=== PATIENT | female | born 1950 | race Caucasian/White ===

== ENCOUNTER 2022-01-09 18:56 | Inpatient (IN) | payer OTHER ==
[2022-01-09] MEDS ORDERED: NA CHLORIDE 0.9% 500 ML ONE (22:10)
[2022-01-09] MEDS ORDERED: ONDANSETRON 4 MG/2 ML VIAL ONE (22:10)
[2022-01-09] MEDS ORDERED: NA CHLORIDE 0.9% 100 ML ONE (22:10)
[2022-01-09] MEDS ORDERED: PIPERACIL/TAZO 3.375 GM VIAL IV ONE (22:10)
--- NOTE | 2022-01-09 22:19 | ER ---
Nurse's Notes [facility] Name: Wanda Galarza Age: 71 yrs Sex: Female : 1950 Arrival Date: 01/09/2022 Time: 19:09 Bed 18 Private MD: Diagnosis: Colitis Presentation: 01/09 20:37 Chief complaint: Patient states: I started having stomach pain on Sunday night and I kd3 had a fever of 100.7. I took Advil and started to feel better. it was a dull muscular ache. I called my Dr this morning and they told me to go to the [place] ER. [facility] sent me to [place] to be admitted for and appendicitis. but the DR at [place] told me that they think it isn't an appendicitis after looking at the reports and scans from [facility]. I signed out of [place] AMA and called my original doctor who told me to get myself to an ER now because if my appendix ruptures it can kill me. Coronavirus screen: Vaccine status: Patient reports receiving the 2nd dose of the covid vaccine. Ebola Screen: No symptoms or risks identified at this time. Initial Sepsis Screen: Does the patient meet any 2 criteria? No. Patient's initial sepsis screen is negative. Does the patient have a suspected source of infection? No. Patient's initial sepsis screen is negative. Risk Assessment: Do you want to hurt yourself or someone else? Patient reports no desire to harm self or others. Onset of symptoms was January 09, 2022. 20:37 Method Of Arrival: Ambulatory kd3 20:37 Acuity: CLAUDIA 3 kd3 Triage Assessment: 20:44 General: Appears uncomfortable, Behavior is calm, cooperative. Pain: Complains of pain kd3 in right lower quadrant. GI: Abdomen is non-distended. Historical: - Allergies: 20:44 No Known Allergies; kd3 - Home Meds: 20:44 levothyroxine 88 mcg cap [Active]; losartan 50 mg oral tab every other day [Active]; kd3 - PMHx: 01/10 12:46 Hypertensive disorder; Hypothyroidism; tw2 - Immunization history:: Adult Immunizations up to date. - Social history:: Smoking status: Patient denies any tobacco usage or history of. Screenin:45 Abuse screen: Denies threats or abuse. Denies injuries from another. Nutritional as6 screening: No deficits noted. Tuberculosis screening: No symptoms or risk factors identified. Fall Risk None identified. Assessment: 01/09 22:30 General: Appears in no apparent distress. Behavior is calm, cooperative. Pain: as6 Complains of pain in abdomen and right lower quadrant. Neuro: Level of Consciousness is awake, alert, Reports headache. Respiratory: Respiratory effort is even, unlabored. GI: Reports lower abdominal pain. Vital Signs: 20:37 BP 164 / 90; Pulse 112; Resp 16; Temp 99.0; Pulse Ox 100% ; Weight 79.38 kg; Height 5 kd3 ft. 2 in. (157.48 cm); Pain 8/10; 20:37 Body Mass Index 32.01 (79.38 kg, 157.48 cm) kd3 ED Course: 19:09 Patient arrived in ED. ja2 20:44 Triage completed. kd3 20:44 Arm band placed on left wrist. kd3 20:47 Boy Lundy PA is PHCP. cp 20:47 Boy Sandhu MD is Attending Physician. cp 20:54 Magdaleno Landon, CHRISTIAN is Primary Nurse. as6 22:17 Stephanie Valdes PA is Hospitalizing Provider. cp 22:30 Inserted saline lock: 22 gauge in right antecubital area, using aseptic technique. as6 Blood collected. 23:03 Malachi Bar MD is Hospitalizing Provider. 01/10 05:30 COVID-19 SARS RT PCR (Document "Date of Onset" if Symptomatic) Sent. [facility] 05:45 Bed in low position. Call light in reach. Side rails up X2. as6 05:45 No provider procedures requiring assistance completed. Patient admitted, IV remains in as6 place. Administered Medications: 01/09 23:13 Not Given (Patient Refused): Zofran (Ondansetron) 4 mg IVP once; over 2 minutes as6 01/10 00:15 Drug: Zosyn (piperacillin-tazobactam) 3.375 grams Route: IVPB; Infused Over: 60 mins; aa9 Site: left antecubital; 02:00 Follow up: Response: No adverse reaction; IV Status: Completed infusion aa9 02:00 Drug: NS 0.9% 500 ml Route: IV; Rate: 500 ml/hr; Site: left antecubital; aa9 05:46 Follow up: Response: No adverse reaction; IV Status: Completed infusion; IV Intake: as6 500ml Medication: 05:45 VIS not applicable for this client. as6 Intake: 05:46 IV: 500ml; Total: 500ml. as6 Outcome: 01/09 22:18 Decision to Hospitalize by Provider. pacheco 01/10 05:46 Admitted to ER Hold. Please see [facility] for further documentation. as6 Condition: stable Instructed on the need for admit. 12:55 Patient left the ED. tw2 Signatures: Boy Lundy PA PA cp Wise, Tara, RN RN tw2 Odette Hathaway Ashby, RN RN as6 Светлана Cunningham RN RN kd3 Yolis Thorpe, RN RN sm5 Amairani Toledo, RN RN aa9
--- NOTE | 2022-01-09 22:19 | EDPHYS ---
Physician Documentation [facility] Name: Wanda Galarza Age: 71 yrs Sex: Female : 1950 Arrival Date: 01/09/2022 Time: 19:09 Bed 18 Private MD: ED Physician Boy Sandhu HPI: 01/09 21:30 This 71 yrs old Female presents to ER via Ambulatory with complaints of Abdominal Pain, cp Fever. 21:30 The patient presents with abdominal pain in the lower abdomen. Onset: The cp symptoms/episode began/occurred 3 day(s) ago. 21:30 The symptoms do not radiate. Associated signs and symptoms: Pertinent positives: fever, cp Pertinent negatives: blood in stools, constipation, diarrhea, dysuria, vomiting. The symptoms are described as constant. Severity of pain: in the emergency department the pain is unchanged. Patient reports she was seen at [place] ED earlier today and diagnosed with appendicitis. Patient reports she was transferred to [facility] for possible appendectomy, but when she arrived to the ED she was informed that she would be admitted for IV antibiotics due to concern for colitis and not acute appendicitis. Patient reports she checked herself out of the hospital because she did not want to be admitted for several days. Patient now presents to [facility] with c/o continued lower abdomen pain. Historical: - Allergies: 20:44 No Known Allergies; kd3 - Home Meds: 20:44 levothyroxine 88 mcg cap [Active]; losartan 50 mg oral tab every other day [Active]; kd3 - PMHx: 01/10 12:46 Hypertensive disorder; Hypothyroidism; tw2 - Immunization history:: Adult Immunizations up to date. - Social history:: Smoking status: Patient denies any tobacco usage or history of. ROS: 01/09 21:35 Constitutional: Negative for body aches, chills, fever, poor PO intake. cp 21:35 Eyes: Negative for injury, pain, redness, and discharge. cp 21:35 ENT: Negative for drainage from ear(s), ear pain, sore throat, difficulty swallowing, difficulty handling secretions. 21:35 Cardiovascular: Negative for chest pain, edema, palpitations. 21:35 Respiratory: Negative for cough, shortness of breath, wheezing. 21:35 Abdomen/GI: Positive for abdominal pain, of the right lower quadrant and left lower quadrant, Negative for vomiting, diarrhea, constipation, black/tarry stool, rectal bleeding. 21:35 : Negative for urinary symptoms. 21:35 Neuro: Negative for altered mental status, dizziness, headache, weakness. 21:35 All other systems are negative. Exam: 21:40 Constitutional: The patient appears in no acute distress, alert, awake, non-toxic, well cp developed, well nourished. 21:40 Head/Face: Normocephalic, atraumatic. cp 21:40 Eyes: Periorbital structures: appear normal, Conjunctiva: normal, no exudate, no injection, Sclera: no appreciated abnormality, Lids and lashes: appear normal, bilaterally. 21:40 ENT: External ear(s): are unremarkable, Nose: is normal, Mouth: Lips: moist, Oral mucosa: moist, Posterior pharynx: Airway: no evidence of obstruction, patent. 21:40 Chest/axilla: Inspection: normal. 21:40 Cardiovascular: Rate: normal, Rhythm: regular, Edema: is not appreciated, JVD: is not appreciated. 21:40 Respiratory: the patient does not display signs of respiratory distress, Respirations: normal, no use of accessory muscles, no retractions, labored breathing, is not present, Breath sounds: are clear throughout, no decreased breath sounds, no stridor, no wheezing. 21:40 Abdomen/GI: Inspection: abdomen appears normal, Bowel sounds: active, all quadrants, Palpation: soft, in all quadrants, moderate abdominal tenderness, in the right lower quadrant and left lower quadrant, rebound tenderness, is not appreciated, involuntary guarding, is not appreciated. 21:40 Back: CVA tenderness, is absent. 21:40 Skin: cellulitis, is not appreciated, no rash present. 21:40 Neuro: Orientation: to person, place \\T\\ time. Mentation: is normal, Motor: moves all fours, strength is normal, Sensation: is normal. Vital Signs: 20:37 BP 164 / 90; Pulse 112; Resp 16; Temp 99.0; Pulse Ox 100% ; Weight 79.38 kg; Height 5 kd3 ft. 2 in. (157.48 cm); Pain 8/10; 20:37 Body Mass Index 32.01 (79.38 kg, 157.48 cm) kd3 MDM: 20:55 Patient medically screened. [facility] 22:00 Differential diagnosis: appendicitis, bowel obstruction, diverticulitis, non-specific cp abd pain, Pyelonephritis, Ureterolithiasis, urinary tract infection, colitis. 22:06 Physician consultation: Jose Torres MD was called at 21:45, was contacted at 21:45, cp regarding consult, patient's condition, and will see patient in inpatient room, tomorrow, would like admission per Dr. Stephanie Valdes PA would like medications started, Zosyn, wants CT abdomen/pelvis done in morning. 01/10 00:10 Data reviewed: vital signs, nurses notes, diagnostic data from outside facility, cp radiologic studies, CT scan, lab test result(s). 00:10 Counseling: I had a detailed discussion with the patient and/or guardian regarding: the cp historical points, exam findings, and any diagnostic results supporting the discharge/admit diagnosis, lab results, radiology results, the need for further work-up and treatment in the hospital. 01/09 21:48 Order name: CBC with Diff; Complete Time: 00:05 01/09 21:48 Order name: CMP; Complete Time: 00:05 01/09 21:48 Order name: Lipase; Complete Time: 00:05 01/09 21:48 Order name: Urine Microscopic Only 01/09 21:48 Order name: Lactate; Complete Time: 00:05 01/09 21:48 Order name: Procalcitonin 01/09 21:48 Order name: Blood Culture Adult (2) 01/10 02:19 Order name: Urine Dipstick-Ancillary [facility] 01/10 02:34 Order name: COVID-19 SARS RT PCR (Document "Date of Onset" if Symptomatic) [facility] 01/10 06:27 Order name: SARS-COV-2 RT PCR [facility] 01/10 12:49 Order name: CT EDME 01/09 21:48 Order name: IV Saline Lock; Complete Time: 23:13 01/09 21:48 Order name: Labs collected and sent; Complete Time: 23:13 01/09 21:48 Order name: Urine Dipstick-Ancillary (obtain specimen); Complete Time: 05:46 cp Administered Medications: 01/09 23:13 Not Given (Patient Refused): Zofran (Ondansetron) 4 mg IVP once; over 2 minutes as6 07/12 00:15 Drug: Zosyn (piperacillin-tazobactam) 3.375 grams Route: IVPB; Infused Over: 60 mins; aa9 Site: left antecubital; 02:00 Follow up: Response: No adverse reaction; IV Status: Completed infusion aa9 02:00 Drug: NS 0.9% 500 ml Route: IV; Rate: 500 ml/hr; Site: left antecubital; aa9 05:46 Follow up: Response: No adverse reaction; IV Status: Completed infusion; IV Intake: as6 500ml Disposition Summary: 01/09/22 22:18 Hospitalization Ordered Hospitalization Status: Inpatient Admission cp Condition: Stable cp Problem: new cp Symptoms: are unchanged cp Bed/Room Type: Standard cp Provider: Malachi Bar(01/09/22 23:03) cp Location: Telemetry/MedSurg (Inpatient)(01/10/22 11:24) ja1 Room Assignment: [facility](01/10/22 11:24) ja Diagnosis - Colitis cp Forms: - Medication Reconciliation Form cp - SBAR form cp Addendum: 01/15/2022 15:13 Co-signature as Attending Physician, Boy Sandhu MD I agree with the assessment and c [place] plan of care. Signatures: Dispatcher [employer] EDBoy Chicas MD MD cha Page, Corey, PA Yasmine Mendez cp, RN Cee Wang RN RN tw2 Morgan Schaefer RN RN ja1 Светлана Cunningham RN RN kd3 Stephanie Valdes PA PA sb3 Avalos, Aylin, RN RN aa9 Magdaleno Landon RN as6 Corrections: (The following items were deleted from the chart) 01/09 23:03 22:18 Stephanie Valdes cp cp 23:32 22:18 Telemetry/MedSurg (Inpatient) cp cg 23:32 22:18 cp cg 01/10 11:24 01/09 23:32 [facility] ER HOLD cg ja1 01/10 11:24 01/09 23:32 ERHOLD- cg ja1
[2022-01-09 23:33] LABS: Absolute Lymphocytes (CBC) 1.4 K/uL (0.7-4.9); Hematocrit 40.6 % (36.0-45.0); Lymphocytes % 13.8 % (15.3-44.8); MCV 87.7 fL (80-100); MPV 9.8 fL (7.6-11.3); RBC Red Blood Cell Count 4.63 M/uL (3.86-4.86)
[2022-01-09 23:44] LABS: Albumin 3.5 g/dL (3.4-5.0); Bilirubin Total 0.8 mg/dL (0.2-1.0); Potassium 3.4 mmol/L (3.5-5.1); Protein, Total 7.6 g/dL (6.4-8.2)
--- NOTE | 2022-01-10 00:25 | P.HP ---
Certification for Inpatient Patient admitted to: Inpatient With expected LOS: <2 Midnights Patient will require the following post-hospital care: None Practitioner: I am a practitioner with admitting privileges, knowledge of patient current condition, hospital course, and medical plan of care. Services: Services provided to patient in accordance with Admission requirements found in Title 42 Section 412.3 of the Code of Federal Regulations Patient History Date of Service: 01/10/22 Reason for admission: Colitis History of Present Illness: Patient is a 71-year-old female with past medical history will hypothyroidism and hypertension who presented to the ED with complaints of abdominal pain. Patient was seen today at the [place] [facility] and diagnosed with acute appendicitis and colitis and transferred to [facility] for higher level of care. CT abd/pelv with contrast reads "RLQ inflammation with appendix dilated to 1.3 cm. This may simply reflect an appendicitis, but cecal wall thickening is somewhat out of proportion. Consider colitis with secondary appendiceal obstruction and inflammation." At [facility], she was told she did not need an appendectomy and was going to only be treated with IV antibiotics and decided to leave AMA. She returns to the ED with continued pain. Labs significant for UTI. General surgery was consulted and wishes for patient to be admitted, n.p.o., started on Zosyn, and will be seen in the morning. Allergies No Known Allergies Allergy (Verified 04/17/16 11:15) Home medications list reviewed: Yes Home Medications: Aspirin [Aspirin EC 81 MG] 81 mg PO DAILY 04/12/16 Levothyroxine [Synthroid*] 100 mcg PO [id number] 04/12/16 Losartan/Hydrochlorothiazide [Losartan-Hctz 50-12.5 mg Tab] 0.5 tab PO DAILY 04/12/16 - Past Medical/Surgical History Diabetic: No -: Hypothyroidism -: Hypertension -: Hysterectomy Psychosocial/ Personal History: Patient lives at home with family. - Family History Family History: Reviewed- Non-Contributory - Social History Smoking Status: Never smoker Alcohol use: No CD- Drugs: No Caffeine use: Yes Place of Residence: Home Review of Systems General: Fever Gastrointestinal: Abdominal Pain Physical Examination - Physical Exam General: Alert, In no apparent distress HEENT: Atraumatic, PERRLA, EOMI, Sclerae nonicteric Neck: Supple, 2+ carotid pulse no bruit, No LAD, Without JVD or thyroid abnormality Respiratory: Clear to auscultation bilaterally, Normal air movement Cardiovascular: Regular rate/rhythm, Normal S1 S2 Gastrointestinal: Normal bowel sounds, Non-distended, Tenderness Musculoskeletal: No tenderness Integumentary: No rashes Neurological: Normal speech, Normal strength at 5/5 x4 extr, Normal tone, Normal affect - Studies Laboratory Data (last 24 hrs) 01/09/22 23:07: Sodium 141, Potassium 3.4 L, BUN 10, Creatinine 0.76, Glucose 145 H, Total Bilirubin 0.8, AST 16, ALT 30, Alkaline Phosphatase 62, Lipase 29 L 01/09/22 23:07: WBC 10.4, Hgb 13.9, Hct 40.6, Plt Count 228 Assessment and Plan - Problems (Diagnosis) (1) Acute colitis Current Visit: Yes Status: Resolved (2) Acute appendicitis Current Visit: Yes Status: Acute Qualifiers: Acute appendicitis type: unspecified acute appendicitis type Qualified Code(s): K35.80 - Unspecified acute appendicitis (3) Hypertension Current Visit: Yes Status: Chronic Qualifiers: Hypertension type: primary hypertension Qualified Code(s): I10 - Essential (primary) hypertension (4) Hypothyroidism Current Visit: Yes Status: Chronic Qualifiers: Hypothyroidism type: unspecified Qualified Code(s): E03.9 - Hypothyroidism, unspecified (5) UTI (urinary tract infection) Current Visit: Yes Status: Acute Qualifiers: Urinary tract infection type: acute cystitis Hematuria presence: with hematuria Qualified Code(s): N30.01 - Acute cystitis with hematuria - Plan -General surgery consulted -NPO. Zosyn and IV fluids -Monitor and replete electrolytes per protocol -Reconcile and continue home medications -Lovenox for VTE ppx -Full code Discharge Plan: Home Plan to discharge in: 48 Hours - Advance Directives Does patient have a Living Will: No Does patient have a Durable POA for Healthcare: No - Code Status/Comfort Care Code Status Assessed: Yes (Full) Critical Care: No Time Spent Managing Pts Care (In Minutes): 50
[2022-01-10 02:19] LABS: Urine Blood 3+ (Negative); Urine Glucose Negative (Negative); Urine Protein 2+ (Negative); Urine Specific Gravity 1.025 (1.005-1.030); Urine pH 5.5 (5.0-7.0)
[2022-01-10] MEDS ORDERED: ONDANSETRON 4 MG/2 ML VIAL IV PRN (02:35)
[2022-01-10] MEDS ORDERED: MORPHINE 2 MG/ML SYR IV PRN (02:35)
[2022-01-10 02:52] LABS: Urine Bacteria 20-50 /HPF (<20); Urine RBC <5 /HPF (NONE SEEN)
[2022-01-10 04:02] VITALS: BMI 32.0
[2022-01-10] MEDS ORDERED: Ringers Lactate 1,000 ML IV ONE (05:03)
[2022-01-10] MEDS ORDERED: NA CHLORIDE 0.9% 100 ML ONE (05:12)
[2022-01-10] MEDS ORDERED: PIPERACIL/TAZO 3.375 GM VIAL IV ONE (05:12)
[2022-01-10] MEDS: Ringers Lactate 1,000 ML IV SCH ×3 (05:25→21:00)
[2022-01-10] MEDS: PIPER TAZO 3.375 GM in NA CHLORIDE 0.9% 100 ML IV SCH ×3 (05:26→21:00)
[2022-01-10] MEDS ORDERED: ENOXAPARIN 40 MG/0.4 ML SQ ONE (08:15)
[2022-01-10] MEDS: ENOXAPARIN 40 MG/0.4 ML SQ SCH (08:40)
--- NOTE | 2022-01-10 12:49 | RAD REPORT ---
EXAM DESCRIPTION: CT - CT CHEST,ABD,PELVIS W/O - 01/10/2022 12:33 pm CLINICAL HISTORY: Chest and abdomen pain. colitis vs appendicitis f/u COMPARISON: No comparisons TECHNIQUE: Limited noncontrast examination was performed. All CT scans are performed using dose optimization technique as appropriate and may include automated exposure control or mA/KV adjustment according to patient size. FINDINGS: The lungs are clear.No pleural or pericardial effusion.No intrathoracic adenopathy. The liver, spleen, pancreas, adrenal glands and kidneys are within normal limits. No bowel obstruction, free air, free fluid or abscess. The appendix is thickened to 15 mm. There is s ignificant thickening of the cecum as well with the wall measuring asymmetrically thickened up to 22 mm. No worrisome osseous finding. IMPRESSION: The appendix is thickened and does not fill with contrast. There is mild periappendiceal inflammation and small lymph nodes in the adjacent fat. In addition, the cecum is irregularly thicke juanjose measure up to 22 mm. Possibilities would include appendicitis with secondary edema involving the cecum. Another possibilit y would be cecal mass/malignancy with secondary thickening of the appendix.
[2022-01-10 14:01] VITALS: O2SAT 100
--- NOTE | 2022-01-10 17:28 | CON ---
Date of Consultation: 01/10/2022 Reason For Service: Colitis, appendicitis. History Of Present Illness: This is the case of a 71-year-old patient, who comes to us with 2-3 days history of abdominal pain. Last night did not get better, she want to [facility] ER. She kwame gnosed with colitis and appendicitis, but they noticed that the colon is a little bit more thickened than that they expected. She has no history of inflammatory bowel disease, so they believe this is c olitis, probably a malignancy and obviously because the appendix is next to it may be inflamed like t he colon she was sent to [place] ED for evaluation there and when they saw her, they agreed with that diagnosis, they were going to admit her for IV antibiotics and eventually do a colonoscopy to rule out malignancy. At that moment, she has WBC count elevated. At midnight, she decided to sig n out AMA and then she comes and when she was seen here, she was having less pain and the plan was to admit her to the hospital, IV antibiotics since she does not have any peritonitis, then r epeated a CT scan once again in this institution and we will take it from there. She never has any c olonoscopy done before. She has planned to have colonoscopy in the next few weeks. When I saw her t his morning, she states that the pain in the right lower quadrant has gone and the WBC count came kenyatta k negative. The CAT scan is still pending. Past Medical History: Reviewed. Medications: Reviewed. Allergies: NONE. Social History: She does not smoke. She does not drink alcohol. Family History: Noncontributory. Review of Systems: Yesterday, she had some nausea and abdominal pain. Today, no nausea and abdominal pain resolved. Th ere is no diarrhea. There is no melena. She does not recall any recent weight loss. Ten points oth erwise unremarkable. See H and P. Physical Examination: General: The patient is awake, alert. HEENT: Pupils are equal and reactive. Anicteric. Neck: Supple. Chest: Clear. Abdomen: Soft and depressible. No guarding or rebound. No peritoneal signs. No psoas signs. No R ovsing signs. No Robbins signs. Rectal: Deferred. Breasts: Deferred. Pelvic: Deferred. Extremities: Good capillary refill. Laboratory Data: Blood work reviewed with WBC count of 10. CAT scan of the abdomen and pelvis once again still pending. Plan: If the CT scan reviewed and once again shows an appendicitis and colitis with white count norm al and the pain has gone, we might have to make a decision on which is the proper timing to the surge ry. If she has colitis from a malignancy and that is why and the CAT scan might show, then it will b e an advantage to give the antibiotics, cool this area down and then do a formal colonoscopy and if w e find cancer, do a surgery which may include right hemicolectomy with bowel prep and better conditio ns. If clinically she deteriorates, then we might have to do sooner and that may help us to take a l ook at the appendix. Also, she may end with right hemicolectomy, although the result of this cancer surgery may be not as good as she wants to or may even require colostomy which basically she is tryin g to avoid. Right now, she is asymptomatic and the white count is normal. Once we have that imaging , then we will make a decision in the proper way to go and then she can go consequence for each action. If she manages not to have surgery done during this admission and she controls the swe lling with antibiotics, she must have a colonoscopy as soon as possible whenever the gastroenterologi st believe it is safe to rule out any malignancy in that area. She understands. I will follow the patient with you and give more recommendations as the case develops. VINEET/NOE Voice ID: [id number] Report ID: [id number]
--- NOTE | 2022-01-10 19:01 | P.PN ---
Subjective Date of Service: 01/10/22 Chief Complaint: Colitis Patient denies any complaint. She denies any abdominal pain. She denies any diarrhea. No nausea or vomiting. Physical Examination - Vital Signs Temperature: 97.4 F Blood Pressure: 155/78 Pulse: 83 Respirations: 18 Pulse Ox (%): 99 - Physical Exam General: Alert, In no apparent distress, Oriented x3 HEENT: Mucous membr. moist/pink Neck: JVD not distended Respiratory: Clear to auscultation bilaterally, Normal air movement Cardiovascular: No edema, Regular rate/rhythm, Normal S1 S2 Gastrointestinal: Normal bowel sounds, Soft and benign, Non-distended, No tenderness Musculoskeletal: No swelling Integumentary: No rashes Neurological: Normal strength at 5/5 x4 extr - Studies Laboratory Data (last 24 hrs) 01/09/22 23:07: Sodium 141, Potassium 3.4 L, BUN 10, Creatinine 0.76, Glucose 145 H, Total Bilirubin 0.8, AST 16, ALT 30, Alkaline Phosphatase 62, Lipase 29 L 01/09/22 23:07: WBC 10.4, Hgb 13.9, Hct 40.6, Plt Count 228 Assessment And Plan - Current Problems (Diagnosis) (1) Colitis Current Visit: Yes Status: Acute (2) Hypertension Current Visit: Yes Status: Chronic Qualifiers: Hypertension type: primary hypertension Qualified Code(s): I10 - Essential (primary) hypertension (3) Hypothyroidism Current Visit: Yes Status: Chronic Qualifiers: Hypothyroidism type: unspecified Qualified Code(s): E03.9 - Hypothyroidism, unspecified (4) UTI (urinary tract infection) Current Visit: Yes Status: Acute Qualifiers: Urinary tract infection type: acute cystitis Hematuria presence: with hematuria Qualified Code(s): N30.01 - Acute cystitis with hematuria - Plan Repeat CT scan report possible cecal malignancy with inflammation in the appen rory versus appendicitis with cecal edema. General surgeryDrErin Torres is following. Patient physical symptoms and lack of leukocytosis or fever do not correlate with acute appendicitis. Dr. Torres suspect malignancy and recommend treating with IV antibiotics for at least 1 more day to see how he responds. Patient will need colonoscopy as an outpatient. She already has an arrangement for colonoscopy to be done. Continue IV Zosyn. Serial abdominal examination. Clear liquid diet.
[2022-01-10] MEDS ORDERED: LOSARTAN POTASSIUM 50 MG TABLET PO SCH (20:00)
[2022-01-11] MEDS ORDERED: ALPRAZOLAM 0.25 MG TABLET PO PRN (00:24)
[2022-01-11] MEDS: ACETAMINOPHEN 500 MG TAB PO PRN ×2 (00:35→09:41)
[2022-01-11 03:52] LABS: Hematocrit 35.7 % (36.0-45.0); Lymphocytes % 24.4 % (15.3-44.8); MCV 88.3 fL (80-100); MPV 9.7 fL (7.6-11.3); RBC Red Blood Cell Count 4.04 M/uL (3.86-4.86)
[2022-01-11 03:59] LABS: Potassium 3.3 mmol/L (3.5-5.1)
[2022-01-11] MEDS ORDERED: POTASSIUM CL SA 10 MEQ TAB PO ONE (06:00)
[2022-01-11] MEDS ORDERED: LEVOTHYROXINE SOD 0.088 MG TAB PO SCH (06:00)
[2022-01-11] MEDS: PIPER TAZO 3.375 GM in NA CHLORIDE 0.9% 100 ML IV SCH (06:33)
[2022-01-11] MEDS: Ringers Lactate 1,000 ML IV SCH (08:28)
[2022-01-11] MEDS: ENOXAPARIN 40 MG/0.4 ML SQ SCH (09:40)
--- NOTE | 2022-01-11 10:51 | P.DS ---
Admission Date: 01/09/22 Discharge Date: 01/11/22 Disposition: ROUTINE DISCHARGE Discharge Condition: FAIR Reason for Admission: Colitis - Problems (1) Colitis Current Visit: Yes Status: Acute (2) Hypertension Current Visit: Yes Status: Chronic Qualifiers: Hypertension type: primary hypertension Qualified Code(s): I10 - Essential (primary) hypertension (3) Hypothyroidism Current Visit: Yes Status: Chronic Qualifiers: Hypothyroidism type: unspecified Qualified Code(s): E03.9 - Hypothyroidism, unspecified (4) UTI (urinary tract infection) Current Visit: Yes Status: Acute Qualifiers: Urinary tract infection type: acute cystitis Hematuria presence: with hematuria Qualified Code(s): N30.01 - Acute cystitis with hematuria Brief History of Present Illness: Patient is a 71-year-old female with past medical history of hypothyroidism and hypertension who presented to the ED with complaints of abdominal pain. Patient was seen at an [place] [facility] and diagnosed with acute appendicitis and colitis and transferred to [facility] for higher level of care. CT abd/pelv with contrast reads "RLQ inflammation with appendix dilated to 1.3 cm. This may simply reflect an appendicitis, but cecal wall thickening is somewhat out of proportion. Consider colitis with secondary appendiceal obstruction and inflammation." At [facility], she was told she did not need an appendectomy and was going to only be treated with IV antibiotics followed by arrangements for colonoscopy. She signed out AMA and later informed her PCP who advised her to come to the emergency department. She returned to the ED with continued pain. Labs significant for UTI. General surgery was consulted and patient hospitalized for further management. Hospital Course: Patient admitted to the medical floor and started on IV Zosyn for colitis. She was seen by general surgery-Dr. Torres repeat CT abdomen pelvis done with oral and IV contrast again demonstrated irregular cecal wall thickening and thickened appendix with mild perappendiceal inflammation. Patient has been asymptomatic with no abdominal pain or fever or leukocytosis. At this point Dr. Torres suspect possible cecal malignancy/inflammation with appendix involvement. He recommended antibiotics and GI follow-up for colonoscopy. Patient has been scheduled for colonoscopy with Dr. Rosas on January 05. She is clinically stable. She is discharged with oral antibiotics-ciprofloxacin and Flagyl. She is informed to return to the ED DILIA for any abdominal pain recurrence which may suggest acute appendicitis. Dr. Rosas reminded of the scheduled follow up with him. Vital Signs/Physical Exam: Temp Pulse Resp BP Pulse Ox 98.4 F 87 14 156/76 H 99 01/11/22 07:53 01/11/22 07:53 01/11/22 07:53 01/11/22 07:53 01/11/22 07:53 General: Alert, In no apparent distress, Oriented x3 HEENT: Mucous membr. moist/pink Neck: Supple, JVD not distended Respiratory: Clear to auscultation bilaterally, Normal air movement Cardiovascular: No edema, Regular rate/rhythm, Normal S1 S2 Gastrointestinal: Normal bowel sounds, Soft and benign, Non-distended, No tenderness Musculoskeletal: No swelling, No tenderness Integumentary: No rashes, No cyanosis Neurological: Normal strength at 5/5 x4 extr Laboratory Data at Discharge: WBC 8.2 K/uL (4.3-10.9) D 01/11/22 03:05 Hgb 12.3 g/dL (12.0-15.0) 01/11/22 03:05 Hct 35.7 % (36.0-45.0) L 01/11/22 03:05 Plt Count 210 K/uL (152-406) 01/11/22 03:05 Sodium 142 mmol/L (136-145) 01/11/22 03:05 Potassium 3.3 mmol/L (3.5-5.1) L 01/11/22 03:05 BUN 7 mg/dL (7-18) 01/11/22 03:05 Creatinine 0.54 mg/dL (0.55-1.3) L 01/11/22 03:05 Glucose 81 mg/dL (74-106) 01/11/22 03:05 Magnesium 2.0 mg/dL (1.8-2.4) 01/11/22 03:05 Total Bilirubin 0.8 mg/dL (0.2-1.0) 01/09/22 23:07 AST 16 U/L (15-37) 01/09/22 23:07 ALT 30 U/L (12-78) 01/09/22 23:07 Alkaline Phosphatase 62 U/L (45-117) 01/09/22 23:07 Lipase 29 U/L (73-393) L 01/09/22 23:07 Home Medications: Levothyroxine [Synthroid*] 88 mcg PO [id number] 01/10/22 Losartan Potassium [Cozaar*] 50 mg PO Q48H 01/10/22 Ciprofloxacin HCl [Cipro 500 MG Tablet] 500 mg PO BID #14 tab 01/11/22 metroNIDAZOLE [Flagyl] 500 mg PO Q8H #21 tablet 01/11/22 New Medications: Ciprofloxacin HCl [Cipro 500 MG Tablet] 500 mg PO BID #14 tab metroNIDAZOLE [Flagyl] 500 mg PO Q8H #21 tablet Diet: AHA Activity: Ad oni Followup: Ashleigh Lynn MD [Primary Care Provider] - 1 Week (call for apt) Yasmani Rosas MD [ASSOCIATE-ACTIVE - CAN ADMIT] - (Please keep appointment with Dr. Rosas as scheduled) Time spent managing pt's care (in minutes): 39
[2022-01-11 12:03] VITALS: BP 137/83; TEMP 97.6
--- OUTSIDE RECORDS SUMMARY | 2022-01-19 00:34 | XMS REPORT | Continuity of Care Document ---
:1950 Author Organization [facility] t Address [address] [place] [address] Care Team Providers Name Role Phone KAREN WASHINGTON Primary Care Physician Unavailable Lyn Purdy Attending Clinician Unavailable LEAH Attending Clinician Unavailable Leah Attending Clinician Doctor Unassigned, Name Attending Clinician Unavailable Leitcia Purdy Admitting Clinician Unavailable LEAH Admitting Clinician Unavailable Payers Payer Name Policy Type Policy Number Effective Date Expiration Date S [facility] [id number] 2021 [facility] 00:00:00 PPO Problems This patient has no known problems. Allergies, Adverse Reactions, Alerts Allergy Allergy Status Severity Reaction(s) Onset Inactive Treating Comm ents Source Name Type Date Date Clinician No Known DA Active U [facility]ie 01-09 [facility] No Known DA Active U [facility] Drug 12-02 [facility] 00:00: d [address] NO KNOWN Drug Active Univers ALLERGIE Class ity of S [facility] Social History Social Habit Start Date Stop Date Quantity Comments Source Sex Assigned At [birth year] [facility] 00:00:00 00:00:00 Medical Branch Smoking Status Start Date Stop Date Source Unknown if ever smoked [facility] Medications This patient has no known medications. Immunizations Ordered Filled Immunization Date Status Comments Sour e Immunization Name Name SARS-COV-2 COVID-19 2020-09-05 Completed Unive rsity of MODERNA VACCINE 00:00:00 [facility] SARS-COV-2 COVID-19 2020-09-05 Completed Unive rsity of MODERNA VACCINE 00:00:00 [facility] SARS-COV-2 COVID-19 2020-08-08 Completed Unive rsity of MODERNA VACCINE 00:00:00 [facility] SARS-COV-2 COVID-19 2020-08-08 Completed Unive rsity of MODERNA VACCINE 00:00:00 [facility] Procedures Procedure Date / Time Performed Performing Clinician Sour e ASSIGNMENT OF BENEFITS 2021-06-17 14:48:56 Doctor Unassigned, No [facility] BI SELF-REFERRED 2020-03-17 13:48:57 Requisition, Paper [facility] SCREENING MAMMOGRAM Medical [facility] ch BILATERAL ASSIGNMENT OF BENEFITS 2020-03-17 13:16:09 Doctor Unassigned, No [facility] BI SCREENING MAMMOGRAM 2019-03-13 15:48:00 Requisition, Paper [facility] Encounters Start End Encounter Admission Attending Care Care Encounter Source Date/Time Date/Time Type Type Clinicians Facility Department ID 2022-01-09 Inpatient EM KENNY Purdy TELE [id number] [facility] 15:04:00 Lyn [id number] [facility] 2022-01-09 2022-01-09 Inpatient EM KENNY Purdy TELE [id number] [facility] 15:04:00 16:19:00 Lyn 73 [facility] 2021-06-17 2021-06-17 Outpatient R [facility] [id number] Univers 08:50:17 23:59:00 KAREN nettles [facility] 2021-06-17 2021-06-17 [facility] [id number] Univers 08:50:17 23:59:00 Encounter Karen PALACIO [id number] ity [facility] [id number] [facility] [id number] [facility] [address] 2021-06-17 2021-06-17 Outpatient R [facility] [id number] Univers 00:00:00 00:00:00 KAREN [id number] ity [facility] 2021-06-17 2021-06-17 Orders Doctor CHRISTINE [id number] Univers 00:00:00 00:00:00 Only Unassigned, RAMON [id number] ity of [place] [facility] [id number] Martin as [id number] [address] 2020-09-05 2020-09-05 Outpatient [facility] [id number] Univers 11:40:00 11:40:00 ity of [facility] 2020-08-08 2020-08-08 Outpatient [facility] [id number] Univers 12:00:00 12:00:00 ity of [facility] 2020-03-17 2020-03-17 [facility] [id number] Univers 08:17:45 23:59:00 Encounter Karen Palacio [id number] ity [facility] [id number] [facility] [id number] [address] 2020-03-17 2020-03-17 Outpatient R [facility] [id number] Univers 08:20:00 08:20:00 KAREN [id number] ity [facility] 2020-03-17 2020-03-17 Outpatient R [facility] [id number] Univers 00:00:00 00:00:00 KAREN ity [facility] 2020-03-17 2020-03-17 Orders Doctor CHRISTINE [id number] Univers 00:00:00 00:00:00 Only Unassigned, RAMON [id number] ity of [place] [facility] [id number] [place] [phone] [place] [address] Branch 2019-03-13 2019-03-13 [facility] [id number] Univers 09:50:49 23:59:00 Encounter Karen Palacio [id number] itrachel sean Ignacio [id number] Junie fonseca [place] [id number] [facility] 800 Branch Results Test Description Test Time Test Comments Results Result Sourc e Comments BI SELF-REFERRED 2020-03-02 Examination:BI Univ ersity of SCREENING 6 SELF-REFERRED [facility] MAMMOGRAM 14:57:08 SCREENING MAMMOGRAM Branc h BILATERAL BILATERAL History:Patient is 69 year old and is seen for: ?Routine. Computer-aided detection (CAD) utilized. Comparisons: 03/13/2019 BI SCREENING MAMMOGRAM BILATERAL, 02/05/2018 BI SCREENING MAMMOGRAM BILATERAL, 01/31/2017 DIGITAL MAMMOGRAM, SCREENING, 01/27/2016 DIGITAL MAMMOGRAM, SCREENING, and 02/08/2015 DIGITAL MAMMOGRAM, SCREENING Findings:The breasts are almost entirely fatty. RightPreviously described finding does not persist. BilateralThere are large miguel-like calcifications in a diffuse distribution seen in both breasts. Compared to the previous study, there are no significant changes. There are large miguel-like and round calcifications in a diffuse distribution seen in both breasts. Compared to the previous study, there are no significant changes. Impression:No signs of malignancy. Recommendation:Annua l mammographic follow-up - Bilateral BI-RADS Category: Both 2 - Benign BI SCREENING 2019-03-02 Examination:BI Universi ty of MAMMOGRAM 2 SCREENING MAMMOGRAM [facility] BILATERAL 17:15:59 BILATERAL Branch History:Patient is 68 year old and is seen for:?Screening breast examination.?Hormone history includes other and estrogen replacement therapy. Surgical history includes hysterectomy. No relevant medical history has been documented for this patient. Computer-aided detection (CAD) utilized. Comparisons: 02/05/2018 BI SCREENING MAMMOGRAM BILATERAL (No Change), 01/31/2017 DIGITAL MAMMOGRAM, SCREENING (No Change), 01/27/2016 DIGITAL MAMMOGRAM, SCREENING (No Change), and 02/08/2015 DIGITAL MAMMOGRAM, SCREENING (No Change) Findings:The breasts are almost entirely fatty. RightThere is an oval mass seen in the upper outer quadrant of the right breast in the middle depth. Compared to the previous study, there are no significant changes. BilateralThere are large miguel-like calcifications in a diffuse distribution seen in both breasts. Compared to the previous study, there are no significant changes. Impression:No signs of malignancy. Recommendation:Shen ahmadi mammographic follow-up - BilateralAnnual mammographic follow-up - Right BI-RADS Category: Both 2 - Benign
== END 2022-01-11 12:30 | disposition home or self-care (01) | DRG 391 ==
LOC: ER 18:56 → ERHOLD 23:25 → 4TH 01-10 12:46
PROVIDERS: ADMIT Internal Medicine Sleep Medicine; ATTEND Internal Medicine Sleep Medicine
DX: K52.9 Noninfective gastroenteritis and colitis, unspecified (principal); U07.1 COVID-19; N30.01 Acute cystitis with hematuria; C18.0 Malignant neoplasm of cecum; I10 Essential (primary) hypertension; E03.9 Hypothyroidism, unspecified
CPT/HCPCS: 36415; 71250; 74176; 80048; 80053; 81003; 81015; 83605; 83690; 83735; 84132; 84145; 85025; 87040; 87086; 87088; 96361; 96365; 96366; 99285; J1650; J2405; J2543; J7040; J7120; U0003

== ENCOUNTER 2022-02-20 08:48 | Observation (INO) | payer OTHER ==
[2022-02-17 09:26] LABS: Absolute Lymphocytes (CBC) 1.3 K/uL (0.7-4.9); Hematocrit 42.5 % (36.0-45.0); Lymphocytes % 22.3 % (15.3-44.8); MCV 87.5 fL (80-100); MPV 10.5 fL (7.6-11.3); RBC Red Blood Cell Count 4.85 M/uL (3.86-4.86)
--- NOTE | 2022-02-17 09:26 | RAD REPORT ---
EXAM DESCRIPTION: RAD - Chest Pa And Lat (2 Views) - 02/17/2022 9:00 am CLINICAL HISTORY: Pre op pending diagnostic laparoscopy COMPARISON: No comparisons FINDINGS: Lines: None. Lungs: No evidence of edema or pneumonia. Pleural: No significant pleural effusions or pneumothorax. Cardiac: The heart size is within normal limits. Bones: No acute fractures. Other: IMPRESSION: No acute cardiopulmonary disease.
[2022-02-17 09:34] LABS: Potassium 4.3 mmol/L (3.5-5.1)
--- NOTE | 2022-02-17 09:42 | EKG ---
Test Date: 2022-02-17 Test Time: 08:37:29 Department Store General Manager: KAYCE MEASUREMENT RESULTS: Intervals: Rate: 84 UT: 156 QRSD: 80 QT: 358 QTc: 423 [place]: P: 28 UT: 156 QRS: -20 T: 12 INTERPRETIVE STATEMENTS: Normal sinus rhythm Possible Left atrial enlargement Possible Anterior infarct, age undetermined Abnormal ECG No previous ECG available for comparison Electronically Signed On 02-17-22 09:41:48 CDT by Bertram Short
[2022-02-20] MEDS ORDERED: Ringers Lactate 1,000 ML IV ONE (09:04)
[2022-02-20] MEDS: CEFOXITIN SODIUM 1 GM/VIAL ONE ×2 (10:02→10:50)
[2022-02-20] MEDS ORDERED: LIDOCAINE 1% MPF 5 ML VIAL ONE (10:30)
[2022-02-20] MEDS ORDERED: MIDAZOLAM HCL 2 MG/2 ML INJ ONE (10:30)
[2022-02-20] MEDS ORDERED: FENTANYL CITR 250 MCG/5 ML ONE (10:30)
[2022-02-20] MEDS ORDERED: ROCURONIUM 50 MG/5 ML VIAL IV ONE (10:30)
[2022-02-20] MEDS ORDERED: dexAMETHasone 10 MG/ML VIAL ONE (10:30)
[2022-02-20] MEDS ORDERED: propofoL 200 MG/20 ML VIAL IV ONE (10:30)
[2022-02-20] MEDS ORDERED: ONDANSETRON 4 MG/2 ML VIAL ONE (10:31)
[2022-02-20] MEDS ORDERED: MORPHINE 2 MG/ML SYR IV PRN (12:08)
[2022-02-20] MEDS ORDERED: ONDANSETRON 4 MG/2 ML VIAL IV PRN (12:08)
[2022-02-20] MEDS ORDERED: KETOROLAC 30 MG/ML INJ ONE (12:08)
[2022-02-20] MEDS ORDERED: SODIUM CHLORIDE 0.9% 10ML INJ IV PRN (12:08)
--- NOTE | 2022-02-20 12:08 | P.BOP ---
Preoperative diagnosis: appendicitis with cecal mass Postoperative diagnosis: same Primary procedure: 1. Diagnostic laparoscopy, 2. MEET, Secondary procedure: 3. cecectomy/appendectomy [employer] Supervisor: [employer] ([employer]) Estimated blood loss: <20cc Specimen: cecum and appendix Findings: polypoid mass at base of appendix, frozen section no done (see pathology re Anesthesia: General Complications: None Drain(s): KRUPA drain Transferred to: Recovery Room Condition: Good
[2022-02-20] MEDS: HYDROMORPHONE HCL 1 MG/ML INJ ONE ×4 (12:47→13:18)
[2022-02-20] MEDS ORDERED: PROMETHAZINE INJ 25 MG/ML AMP ONE (12:51)
[2022-02-20] MEDS ORDERED: METOCLOPRAMIDE 10 MG/2mL INJ ONE (13:03)
[2022-02-20] MEDS ORDERED: NA CHLORIDE 0.9% 1,000 ML ONE (15:10)
[2022-02-20] MEDS: NA CHLORIDE 0.9% 1,000 ML IV SCH (15:15)
[2022-02-20 15:26] VITALS: O2SAT 96
--- OUTSIDE RECORDS SUMMARY | 2022-02-20 15:30 | XMS REPORT | Continuity of Care Document ---
:1950 Author Organization [facility] t Address [address] [place] [address] Care Team Providers Name Role Phone KAREN LYNN Primary Care Physician Unavailable Lyn Purdy Attending Clinician Unavailable KAREN LYNN Attending Clinician Unavailable Karen Lynn Attending Clinician Doctor Unassigned, [place] Attending Clinician Unavailable Lyn Purdy Admitting Clinician Unavailable KAREN LYNN Admitting Clinician Unavailable Payers Payer Name Policy Type Policy Number Effective Date Expiration Date S [facility] [id number] 2021 [facility] 00:00:00 PPO Problems This patient has no known problems. Allergies, Adverse Reactions, Alerts Allergy Allergy Status Severity Reaction(s) Onset Inactive Treating Comm ents Source Name Type Date Date Clinician No Known DA Active U [facility] Allergie 01-09 [facility] 00[facility] No Known DA Active U [facility] Drug 12-02 [facility] 00:00: d iles [address] [place] [address] NO KNOWN Drug Active Univers ALLERGIE Class it[facility] of [facility] Social History Social Habit Start Date Stop Date Quantity Comments Source Sex Assigned At [birth year] [facility] 00:00:00 00:00:00 Medical Branch Smoking Status Start Date Stop Date Source Unknown if ever smoked [facility] Medications This patient has no known medications. Immunizations Ordered Filled Immunization Date Status Comments Sour e Immunization Name Name SARS-COV-2 COVID-19 2020-09-05 Completed Unive rsity of MODERNA VACCINE 00:00:00 [facility] SARS-COV-2 COVID-19 2020-09-05 Completed Unive rsity of MODERNA VACCINE 00:00:00 [facility] SARS-COV-2 COVID-19 2020-08-08 Completed Unive rsity of MODERNA VACCINE 00:00:00 [facility] SARS-COV-2 COVID-19 2020-08-08 Completed Unive rsity of MODERNA VACCINE 00:00:00 [facility] Procedures Procedure Date / Time Performed Performing Clinician [facility] e ASSIGNMENT OF BENEFITS 2021-06-17 14:48:56 Doctor Unassigned, No [facility] BI SELF-REFERRED 2020-03-17 13:48:57 Requisition, Paper [facility] SCREENING MAMMOGRAM Medical [facility] BILATERAL ASSIGNMENT OF BENEFITS 2020-03-17 13:16:09 Doctor Unassigned, No [facility] BI SCREENING MAMMOGRAM 2019-03-13 15:48:00 [facility]quisition, [facility] Encounters Start End Encounter Admission Attending Care Care Encounter Source Date/Time Date/Time Type Type Clinicians Facility Department ID 2022-01-09 2022-01-09 Inpatient EM KENNY Purdy TELE [id number] [facility] 15:04:00 16:19:00 Lyn 73 [facility] 2022-01-09 2022-01-09 Inpatient EM KENNY Purdy TELE [id number] [facility] 15:04:00 16:19:00 Lyn [id number] [facility] 2021-06-17 2021-06-17 Outpatient Corina LYNN [facility] [id number] [facility] 08:50:17 23:59:00 KAREN nettles [facility] 2021-06-17 2021-06-17 [facility] [id number] Univers 08:50:17 23:59:00 Encounter Karen PALACIO [id number] ity [facility] [id number] [facility] [id number] [facility] [address] 2021-06-17 2021-06-17 Outpatient R [facility] [id number] Univers 00:00:00 00:00:00 KAREN [id number] ity [facility] 2021-06-17 2021-06-17 Orders Doctor CHRISTINE [id number] Univers 00:00:00 00:00:00 Only Unassigned, RAMON [id number] ity of [place] [facility] [id number] [place] [address] [id number] [place] [address] Branch 2020-09-05 2020-09-05 Outpatient [facility] [id number] Univers 11:40:00 11:40:00 ity of [facility] 2020-08-08 2020-08-08 Outpatient [facility] [id number] Univers 12:00:00 12:00:00 ity of [facility] 2020-03-17 2020-03-17 [facility] [id number] Univers 08:17:45 23:59:00 Encounter Karen Palacio [id number] ity [facility] 4.2.7.2.6 [facility] [id number] [address] 2020-03-17 2020-03-17 Outpatient [facility] [id number] Univers 08:20:00 08:20:00 KAREN [id number] ity [facility] 2020-03-17 2020-03-17 Outpatient [facility] [id number] Univers 00:00:00 00:00:00 KAREN ity [facility] 2020-03-17 2020-03-17 Orders Doctor KING [id number] Univers 00:00:00 00:00:00 Only Unassigned, RAMON [id number] ity of [place] [facility] [id number] [place] [id number] [facility] 009 Branch 2019-03-13 2019-03-13 [facility] ADAM Lynn [id number] [id number] [facility] 09:50:49 23:59:00 Encounter Karen Palacio [id number] ity of [place] [id number] [place] [id number] [facility] 800 Branch Results Test Description Test Time Test Comments Results Result Sourc e Comments BI SELF-REFERRED 2020-03-02 Examination:BI Univ ersity of SCREENING 6 SELF-REFERRED [facility] MAMMO[facility] 14:57:08 SCREENING MAMMOGRAM Branc [...] Universi ty of MAMMOGRAM 2 SCREENING MAMMOGRAM [facility] BILATERAL 17:15:59 BILATERAL Branch History:Patient is 68 [...] no significant changes. Impression:No signs of malignancy. Recommendation:Annparamjit l mammographic follow-up - BilateralAnnual mammographic follow-up - Right BI-RADS Category: Both 2 - Benign
[2022-02-20 17:04] VITALS: BMI 29.2
[2022-02-20] MEDS: CEFOXITIN 1 GM in NA CHLORIDE 0.9% 50 ML IVPB SCH (17:49)
[2022-02-20] MEDS: HYDROCODONE/APAP 5/325 MG TAB PO PRN ×2 (17:51→22:54)
--- NOTE | 2022-02-20 21:33 | P.CNS ---
Date of Consult: 02/20/22 Reason for Consult: Medical Mangement Requesting Physician: Jose Torres Chief Complaint: S/P Appendectomy & Cecectomy History of Present Illness: Patient is a 71 year old female with history of hypertension, GERD, and hypothyroidism who had diagnostic laparoscopy, lysis of adhesions, appendectomy, and cecectomy today. Patient had a CT 1.5 moths ago that was suspicious for cecal mass/malignancy with secondary thickening of appendix. She was treated with IV antibiotics. She later had an outpatient colonoscopy which confirmed cecal mass and followed up with general surgery who scheduled the operation. Procedure was successful and uncomplicated. General surgery consulted hospitalist for medical management of patient's hypertension, GERD, and hypothyroidism. Patient has no complaints during my assessment. Allergies No Known Allergies Allergy (Verified 02/20/22 09:26) Home Medications: Levothyroxine [Synthroid*] 88 mcg PO [id number] 01/10/22 Losartan Potassium [Cozaar*] 25 mg PO Q48H 01/10/22 Omeprazole 20 mg PO DAILY 02/17/22 Spironolactone [Aldactone] 12.5 mg PO SEECOM 02/17/22 - Past Medical/Surgical History Diabetic: No -: HTN -: GERD -: Arthritis -: hypothyroidism -: Hysterectomy -: cesearean section x3 -: left wrist surgery Psychosocial/ Personal History: Patient lives at home with family. - Family History Father Medical History: Heart disease Mother Medical History: Heart disease Brother Medical History: Cancer - Social History Smoking Status: Former smoker, Never smoker Alcohol use: No CD- Drugs: No Caffeine use: Yes Place of Residence: Home Review of Systems Unremarkable Physical Examination Temp Pulse Resp BP Pulse Ox 97.8 F 101 H 14 136/66 96 02/20/22 16:57 02/20/22 16:57 02/20/22 17:51 02/20/22 16:57 02/20/22 17:51 General: Alert, In no apparent distress HEENT: Atraumatic, PERRLA, EOMI, Sclerae nonicteric Neck: Supple, 2+ carotid pulse no bruit, No LAD, Without JVD or thyroid abnorm ality Respiratory: Clear to auscultation bilaterally, Normal air movement Cardiovascular: Regular rate/rhythm, Normal S1 S2 Gastrointestinal: Soft and benign, Tenderness Musculoskeletal: No tenderness Integumentary: No rashes Neurological: Normal speech, Normal tone, Normal affect - Problems (1) Hypothyroidism Current Visit: Yes Status: Chronic Qualifiers: Hypothyroidism type: acquired Qualified Code(s): E03.9 - Hypothyroidism, unspecified (2) Hypertension Current Visit: Yes Status: Chronic Qualifiers: Hypertension type: primary hypertension Qualified Code(s): I10 - Essential (primary) hypertension (3) GERD (gastroesophageal reflux disease) Current Visit: Yes Status: Chronic Qualifiers: Esophagitis presence: without esophagitis Qualified Code(s): K21.9 - Gastro-esophageal reflux disease without esophagitis (4) Status post appendectomy Current Visit: Yes Status: Acute Conclusions/Impression: -Will continue patient's home medications for hypertension, hypothyroidism, GERD: losartan, spironolactone, omeprazole, levothyroxine -Monitor daily labs and replete electrolytes per protocol -Continue pain management, diet, and wound care per general surgery -SCDs for DVT prophylaxis -Full code Thank you for consultation. Critical Care: No Time Spent Managing Pts care (In Minutes): 30
[2022-02-21] MEDS: NA CHLORIDE 0.9% 1,000 ML IV SCH (02:03)
[2022-02-21] MEDS ORDERED: CEFOXITIN SODIUM 1 GM/VIAL ONE (02:20)
[2022-02-21 03:58] LABS: Absolute Lymphocytes (CBC) 0.7 K/uL (0.7-4.9); Hematocrit 38.5 % (36.0-45.0); Lymphocytes % 7.7 % (15.3-44.8); MCV 89.4 fL (80-100); MPV 10.2 fL (7.6-11.3); RBC Red Blood Cell Count 4.31 M/uL (3.86-4.86)
[2022-02-21 04:20] LABS: Magnesium 2.2 mg/dL (1.8-2.4); Phosphorus 3.8 mg/dL (2.5-4.9); Potassium 4.6 mmol/L (3.5-5.1)
[2022-02-21] MEDS ORDERED: LEVOTHYROXINE SOD 0.088 MG TAB PO SCH (06:00)
[2022-02-21] MEDS: CEFOXITIN 1 GM in NA CHLORIDE 0.9% 50 ML IVPB SCH ×3 (06:14)
[2022-02-21] MEDS ORDERED: PANTOPRAZOLE 40MG TABLET PO SCH (06:30)
[2022-02-21] MEDS ORDERED: SPIRONOLACTONE 25 MG TABLET PO SCH (09:00)
[2022-02-21] MEDS ORDERED: LOSARTAN POTASSIUM 50 MG TABLET PO SCH (09:00)
[2022-02-21] MEDS ORDERED: PANTOPRAZOLE 40 MG INJ IVP SCH (09:00)
--- NOTE | 2022-02-21 10:09 | OP ---
Date of Procedure: 02/20/2022 Surgeon: Jose Torres MD Fuel Cell Technician: JOAQUIN Hairston. Preoperative Diagnoses: Cecal mass and appendicitis. Postoperative Diagnoses: Cecal mass and appendicitis. Procedures: Diagnostic laparoscopy, laparoscopic lysis of adhesions, laparoscopic cecectomy/appendec sen. Estimated Blood Loss: Less than 20 cc. Specimens: Cecum and appendix. Findings: Polypoid mass at the base of the cecum. We sent the specimen for frozen section. Discuss ed the case with Dr. Boswell, it is clearly identified with negative margins, but due to size and the friability of the tumor, she preferred to have it done as a permanent. Running at risk sh e is trying to give me something at this moment, she may not be able to diagnose or have any other ti ssue to have a definitive diagnosis. Based on her experience and the look of it, it is still looking like a polypoid mass and this mass was previously biopsied by GI doctor and showing tubular adenoma, although cecectomy was recommended because it is very small biopsy. Complications: None. Drain: KRUPA #10. Indications: This is a case of 71-year-old patient, came a little bit more than a month ago with a d iagnosis of right lower quadrant pain, diagnosed with an enlarged appendix, then resolved pain on its own. We suspect the patient may be having a tumor near the area, so we were able to cool this down with antibiotics and then do an elective colonoscopy. Dr. 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 He recommends the ananda ctomy to be done and we have to extend this one level. If we find out it is a cancer, then we may ev en have to extend the right hemicolectomy. The patient fully explained the options, diagnostic lap, laparoscopic appendectomy, laparoscopic cecectomy, and possible right hemicolectomy, possible ostomy with benefits and 10/10 risks including, but not limited to infection, bleeding, damage to adjacent s tructures as complication, recurrence of bowel leak, DC, and even . She also understands this m ay not relieve the symptoms. She may need more than one surgical intervention. She understood and s igned the consent. Procedure In Detail: The patient was brought to the operating room and placed in the supine position . Anesthesia was done without complication. Abdominal area was prepped and draped in usual sterile fashion. Marcaine 0.5% was injected in the every area to be incised. First incision was done in the infraumbilical region. Incision was carried down to fascia, which was opened under direct vision. Peritoneum was encountered and opened under direct vision. Vicryl #1 was placed inside of the fascia . Denny trocar was carefully introduced. Pneumoperitoneum was obtained. I placed 2 more trocars 5 mm each one of them in the suprapubic and left lower quadrant under direct visualization. This allo wed me to visualize the area of the appendix. In order for us to do at least cecectomy, we identifie d the ileocecal valve. It is possible to do a cecectomy without having to do a right hemicolectomy y et. So, we proceeded to carefully open the white line of Toldt, mobilize the cecum, go through the m esoappendix with the LigaSure. The patient has omental adhesions in that area, so carefully we were removing them with the help of LigaSure. Once we have adhesions removed, we have the ileocecal valve fully identified. We have the appendix also loose because we went through the mesoappendix with the help of LigaSure and then we mobilized the white line of Toldt and protected the ureter at all time. We were able to find a plane where we can fire an Endo LAKSHMI 60 to do the formal cecectomy. This was done with the help of 2 cartridges. The specimen was marked and sent to the pathology, and hemostas is was obtained. I went there to frozen section. She opened the specimen and identified the mass ri ght at the base of the appendix as suspected, but the mass she believes is better and permanent. We understand the options of we may have to come back here into surgery if final shows any carcinoma. S o, we went outside and discussed that with the patient, , and son. We explained to them the o ptions. They preferred not to do a frozen section at this time. If we are able to we may not have accurate result, necessary surgery. If we go ahead and try to predict if it is cancer or not, I will do a right hemicolectomy. We might find out, later we do not need it at all. So with the option at this moment, we will be just stopping the cecectomy. She still has good contin uation of intestines there and , and if it comes back as cancer, then she had ri ght hemicolectomy and the family preferred that route and right now just continues without evidence. At that moment, I proceeded to go back and obtained hemostasis. Checked the area. No bleeding. No bowel leak. KRUPA drain was left in that area, exiting through one of the trocar sites and securing th at with 3-0 nylon. Irrigation was done in the area. Once again, we checked the area of the dissecti on and lysis of adhesions with no bleeding. The rest of the ascending colon and terminal ileum looke d intact with no cyanosis. So at that moment, I proceeded to remove the trocars under direct vision, deflated pneumoperitoneum, closed the fascia with #1 Vicryl, irrigated subcutaneous tissue, closed t hat with 3-0 chromic and skin with linda. Sponge count and instrument counts were correct. The pa efrain tolerated the procedure well. The patient was sent to recovery in stable condition. Because o f lysis of adhesions, cecectomy, and the time in the OR, we are going to keep the patient on observat ion for pain control, and then if she is tolerating diet tomorrow, we will send her home. VINEET/NOE Voice ID: [id number] Report ID: [id number]
--- NOTE | 2022-02-21 11:33 | P.DS ---
Admission Date: 02/20/22 Discharge Date: 02/21/22 Disposition: ROUTINE DISCHARGE Discharge Condition: GOOD Reason for Admission: S/P Appendectomy & Cecectomy, cecal mass Vital Signs/Physical Exam: Temp Pulse Resp BP Pulse Ox 96.9 F 83 18 120/74 99 02/21/22 08:00 02/21/22 08:00 02/21/22 08:00 02/21/22 08:00 02/21/22 08:00 General: In no apparent distress, Oriented x3, Cooperative HEENT: Normocephalic, PERRLA Neck: Supple Respiratory: Normal air movement Gastrointestinal: Soft and benign Musculoskeletal: No erythema, No tenderness Integumentary: No rashes, No breakdown, No erythema, No warmth, No cyanosis Neurological: Normal speech Laboratory Data at Discharge: WBC 9.50 K/uL (4.3-10.9) D 02/21/22 03:19 Hgb 13.1 g/dL (12.0-15.0) 02/21/22 03:19 Hct 38.5 % (36.0-45.0) 02/21/22 03:19 Plt Count 178 K/uL (152-406) 02/21/22 03:19 Sodium 138 mmol/L (136-145) 02/21/22 03:19 Potassium 4.6 mmol/L (3.5-5.1) 02/21/22 03:19 BUN 9 mg/dL (7-18) 02/21/22 03:19 Creatinine 0.96 mg/dL (0.55-1.3) 02/21/22 03:19 Glucose 118 mg/dL (74-106) H 02/21/22 03:19 Phosphorus 3.8 mg/dL (2.5-4.9) 02/21/22 03:19 Magnesium 2.2 mg/dL (1.8-2.4) 02/21/22 03:19 Home Medications: Levothyroxine [Synthroid*] 88 mcg PO [id number] 01/10/22 Losartan Potassium [Cozaar*] 25 mg PO Q48H 01/10/22 Omeprazole 20 mg PO DAILY 02/17/22 Spironolactone [Aldactone] 12.5 mg PO SEECOM 02/17/22 Physician Discharge Instructions: Keep area dry for 24h then may remove outer dressing and shower, Record KRUPA output q24h continue home meds Diet: AHA Activity: No lifting more than 10 lbs Followup: Jose Torres MD [ACTIVE - CAN ADMIT] - 1 Week
[2022-02-21] MEDS: HYDROCODONE/APAP 5/325 MG TAB PO PRN (15:05)
[2022-02-21 17:50] VITALS: BP 122/57; TEMP 97
== END 2022-02-21 19:00 | disposition home or self-care (01) ==
LOC: OR 08:48 → 4TH 15:27
PROVIDERS: ADMIT Surgery; ATTEND Surgery
PROC: 0DTH4ZZ Resection of Cecum, Percutaneous Endoscopic Approach (ICD-10-PCS; principal; 2022-02-20 10:30)
DX: D12.0 Benign neoplasm of cecum (principal); K37 Unspecified appendicitis; I10 Essential (primary) hypertension; K21.9 Gastro-esophageal reflux disease without esophagitis; E03.9 Hypothyroidism, unspecified; M19.90 Unspecified osteoarthritis, unspecified site; Z87.891 Personal history of nicotine dependence
CPT/HCPCS: 93005; 85025 ×2; 80048 ×2; 36415 ×2; 83735; 84100; 88329; 88304 ×2; 71046; 97116; 97161; 97530; 94010 ×2; 44204; U0003; G0379; J2704; J2765; J2550; J2250; J3010; J1100; J1170 ×2; J7120; J7030 ×2; J0694 ×5; J2405; G0378 ×2; J2001